=== PATIENT | male | born 1995 | race Two or more races ===

== ENCOUNTER 2020-02-22 19:55 | Emergency (ER) | payer SELFPAY ==
[2020-02-22] MEDS ORDERED: Acetaminophen/HYDROcodone 325-5 MG Tab PO ONE (20:06)
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
[2020-02-22 21:02] LABS: BLOOD UREA NITROGEN,BUN 18 mg/dL (7.0-18.0); CARBON DIOXIDE,CO2 25.3 mmol/L (21.0-32.0); CHLORIDE,CL 103 mmol/L (98-107); GLUCOSE RANDOM 92 mg/dL (74-106); POTASSIUM,K 3.5 mmol/L (3.5-5.1); SODIUM,NA 136 mmol/L (136-148)
[2020-02-22] MEDS ORDERED: Diphtheria,Pertussis(Acell),Tetanus Vaccine 0.5 ML Syringe ONE (22:12)
[2020-02-22] MEDS ORDERED: Diphtheria,Pertussis(Acell),Tetanus Vaccine 0.5 ML Syringe IM ONE (22:12)
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
== END 2020-02-22 22:22 | disposition home or self-care (01) ==
LOC: MW.ED 19:55
DX: S00.83XA Contusion of other part of head, initial encounter (principal); M54.2 Cervicalgia; Z23 Encounter for immunization; V49.9XXA Car occupant (driver) (passenger) injured in unspecified traffic accident, initial encounter
CPT/HCPCS: 36415; 70450; 71045; 72125; 72170; 80053; 85025; 90471; 99285; A9270